=== PATIENT | female | born 1990 | race American Indian/Alaskan Native ===

== ENCOUNTER 2018-07-05 11:19 | Emergency (ER) | payer MEDICAID ==
[2018-07-05 12:03] VITALS: BP 131/82
--- NOTE | 2018-07-05 12:03 | Emergency Department Report ---
Blank Doc - Documentation Documentation: this 28 y o female presents to Ed cc of pelvic paic x 2-3 days denies f/v/d/dysuria UA upt, ACC evaluate
[2018-07-05 13:49] LABS: WBC,Urine < 1.0 /HPF (0.0-6.0)
[2018-07-05 13:53] LABS: Bilirubin,Urine NEG (Negative); Blood,Urine SM (Negative); Color,Urine Straw (Yellow); Protein,Urine <15 mg/dL mg/dL (Negative); Urobilinogen,Urine < 2.0 mg/dL (<2.0)
[2018-07-05 13:54] LABS: HCG Qualitative,Urine Positive (Negative)
[2018-07-05] MEDS ORDERED: TYLENOL PO ONE (15:25)
--- NOTE | 2018-07-05 17:13 | Ultrasound Report ---
PROCEDURE: US OB TRANSVAGINAL TECHNIQUE: Ultrasound obstetrical transvaginal HISTORY: preg with abd pain/ COMPARISONS: FINDINGS: Gestational sac present within the uterus There is pole identified with crown-rump length of 0.9 cm corresponding to estimated gestationa l age of 7 weeks 0 days. cardiac activity present with heart rate of 1 41 bpm. Estimated date o f delivery February 21, 2019 Yolk sac identified Right ovary 5.5 x 2.5 x 4.2 cm Left ovary is 3.4 x 2.5 x 4.1 cm No free fluid identified within the cul-de-sac IMPRESSION: Single live intrauterine gestation estimated at 7 weeks 0 days. This document is electronically signed by Walter Dominguez MD., July 05 2018 05:11:03 PM ET
--- NOTE | 2018-07-05 18:01 | Emergency Department Report ---
ED Female HPI - General Chief complaint: Abdominal Pain Stated complaint: ABD PAIN/HEADACHES Time Seen by Provider: 07/05/18 12:00 Source: patient Mode of arrival: Ambulatory Limitations: No Limitations - History of Present Illness Initial comments: Patient is a 28-year-old [place] female who is presenting with lower abdominal pain for the last several days. Patient states she has some mild nausea but no vomiting. Patient states she has a headache as well last several days. Patient has a history of irregular periods and is not sure she is or not. She denies any fevers chills cough, congestion this time. - Related Data Previous Rx's Medication Instructions Recorded Last Taken Type Pnv95/Ferrous Fumarate/FA 1 each PO QDAY #90 tablet 08/22/14 03/10/15 14:00 Rx [ Formula Tablet] Pnv,Calcium 72/Iron/Folic Acid 1 each PO DAILY #30 tablet 07/05/18 Unknown Rx [Pnv Plus Multivit Tab] Allergies Allergy/AdvReac Type Severity Reaction Status Date / Time No Known Allergies Allergy Verified 07/05/18 11:21 ED Review of Systems ROS: Stated complaint: ABD PAIN/HEADACHES Other details as noted in HPI Comment: All other systems reviewed and negative ED Past Medical Hx - Past Medical History Previous Medical History?: No Hx Hypertension: No Hx Congestive Heart Failure: No Hx Diabetes: No Hx Deep Vein Thrombosis: No Hx Renal Disease: No Hx Sickle Cell Disease: No Hx Seizures: No Hx Asthma: No Hx COPD: No Hx HIV: No - Surgical History Past Surgical History?: No - Social History Smoking Status: Never Smoker - Medications Home Medications: Home Medications Medication Instructions Recorded Confirmed Last Taken Type Pnv95/Ferrous Fumarate/FA 1 each PO QDAY #90 tablet 08/22/14 03/21/15 03/10/15 14:00 Rx [ Formula Tablet] Pnv,Calcium 72/Iron/Folic Acid 1 each PO DAILY #30 tablet 07/05/18 Unknown Rx [Pnv Plus Multivit Tab] ED Physical Exam - General Limitations: No Limitations General appearance: alert, in no apparent distress - Head Head exam: Present: atraumatic, normocephalic - Eye Eye exam: Present: normal appearance - ENT ENT exam: Present: mucous membranes moist - Neck Neck exam: Present: normal inspection - Respiratory Respiratory exam: Present: normal lung sounds bilaterally. Absent: respiratory distress, wheezes, rales, rhonchi - Cardiovascular Cardiovascular Exam: Present: regular rate, normal rhythm. Absent: systolic murmur, diastolic murmur, rubs, gallop - GI/Abdominal GI/Abdominal exam: Present: soft, normal bowel sounds. Absent: distended, tenderness, guarding, rebound - Extremities Exam Extremities exam: Present: normal inspection - Back Exam Back exam: Present: normal inspection - Neurological Exam Neurological exam: Present: alert, oriented X3 - Psychiatric Psychiatric exam: Present: normal affect, normal mood - Skin Skin exam: Present: warm, dry, intact, normal color. Absent: rash ED Course Vital Signs 07/05/18 07/05/18 12:00 15:43 Temperature 98.2 F Pulse Rate 83 Respiratory 15 16 Rate Blood Pressure 131/82 O2 Sat by Pulse 100 Oximetry ED Medical Decision Making - Lab Data Lab Results 07/05/18 07/05/18 Range/Units 12:44 15:31 HCG, Quant 10327 H (0-4) mIU/mL Urine Color Straw (Yellow) Urine Turbidity Clear (Clear) Urine pH 8.0 H (5.0-7.0) Ur Specific Pilot 1.006 (1.003-1.030) Urine Protein <15 mg/dl (Negative) mg/dL Urine Glucose (UA) Neg (Negative) mg/dL Urine Ketones Neg (Negative) mg/dL Urine Blood Sm (Negative) Urine Nitrite Neg (Negative) Ur Reducing Substances Not Reportable Urine Bilirubin Neg (Negative) Urine Ictotest Not Reportable Urine Urobilinogen < 2.0 (<2.0) mg/dL Ur Leukocyte Esterase Neg (Negative) Urine WBC (Auto) < 1.0 (0.0-6.0) /HPF Urine RBC (Auto) 5.0 (0.0-6.0) /HPF U Epithel Cells (Auto) 1.0 (0-13.0) /HPF Urine HCG, Qual Positive A (Negative) - Radiology Data [facility] [address] [place] [address] Ultrasound Report Signed Patient: TOMASZ HOLDEN MR#: [id number] : 1990 Acct:[id number] Age/Sex: 28 / F ADM Date: 07/05/18 Loc: ED Attending Dr: Ordering Physician: SERGE FARFAN MD Date of Service: 07/05/18 Procedure(s): US OB transvaginal Accession Number(s): [id number] cc: SERGE FARFAN MD PROCEDURE: US OB TRANSVAGINAL TECHNIQUE: Ultrasound obstetrical transvaginal HISTORY: preg with abd pain/ COMPARISONS: FINDINGS: Gestational sac present within the uterus There is pole identified with crown-rump length of 0.9 cm corresponding to estimated gestational age of 7 weeks 0 days. cardiac activity present with heart rate of 1 41 bpm. Estimated date of delivery February 21, 2019 Yolk sac identified Right ovary 5.5 x 2.5 x 4.2 cm Left ovary is 3.4 x 2.5 x 4.1 cm No free fluid identified within the cul-de-sac IMPRESSION: Single live intrauterine gestation estimated at 7 weeks 0 days. This document is electronically signed by Walter Crespo MD., July 05 2018 05:11:03 PM ET Transcribed By: [facility] Dictated By: YANCY CRESPO MD Electronically Authenticated By: YANCY CRESPO MD Signed Date/Time: 07/05/18 171 DD/ 50 TD/TT: 07/05/181650 - Medical Decision Making Patient will be discharged home at this time. She has a IUP is been diagnosed in the emergency department. Patient's pain is most likely secondary to some abdominal cramping. Critical care attestation.: If time is entered above; I have spent that time in minutes in the direct care of this critically ill patient, excluding procedure time. ED Disposition Clinical Impression: Abdominal pain affecting Disposition: -01 TO HOME OR SELFCARE Is pt being admited?: No Does the pt Need Aspirin: No Condition: Stable Instructions: (ED), Abdominal Pain (ED) Prescriptions: Pnv,Calcium 72/Iron/Folic Acid [Pnv Plus Multivit Tab] 1 each PO DAILY #30 tablet Referrals: SHUN BRIGGS MD [Primary Care Provider] - 3-5 Days Time of Disposition: 17:57
--- NOTE | 2018-07-11 08:59 | Ultrasound Report ---
PROCEDURE: US OB <= 14 WEEKS FETUS TECHNIQUE: Transvaginal and transabdominal first trimester ultrasound. The transvaginal portion is d ictated separately on 07/05/2018 HISTORY: preg with abd pain COMPARISONS: None FINDINGS: Single living intrauterine with recorded cardiac activity of 141 bpm. Estimated gestational age is 7 weeks 0 days and estimated delivery date is 02/21/2019 based on crown-rump length of 9 mm. No perigestational hemorrhage identified. No significant free fluid in the pelvis. The ovaries are be tter visualized on transvaginal ultrasound of the same date. IMPRESSION: Single living intrauterine with estimated gestational age of 7 weeks 0 days and delivery da te of 02/21/2019. This document is electronically signed by Mahendra Patel MD., July 11 2018 08:56:29 AM ET
== END 2018-07-05 18:00 | disposition home or self-care (01) ==
LOC: ED 11:19
DX: O26.891 Other specified pregnancy related conditions, first trimester (principal); R10.9 Unspecified abdominal pain; R51 Headache; R11.0 Nausea; Z3A.01 Less than 8 weeks gestation of pregnancy
CPT/HCPCS: 36415; 76801; 76817; 81001; 81025; 84702; 99284

== ENCOUNTER 2019-02-06 21:42 | Inpatient (IN) | payer MEDICAID ==
[2019-02-06] MEDS ORDERED: ePHEDrine SULFATE 50 MG/1 ML INJ IV PRN (23:42)
[2019-02-06] MEDS ORDERED: fentaNYL 100 MCG/2 ML INJ IV PRN (23:42)
[2019-02-06] MEDS ORDERED: TERBUTALINE 1 MG/1 ML INJ IVP PRN (23:42)
[2019-02-06] MEDS ORDERED: BUTORPHANOL 2 MG/1 ML INJ IV PRN (23:42)
[2019-02-06] MEDS ORDERED: AMPICILLIN/NS 2 GM/100 ML 2 GM/100 ML BAG IV ONE (23:42)
[2019-02-06] MEDS ORDERED: TERBUTALINE 1 MG/1 ML INJ SUB-Q PRN (23:42)
[2019-02-06] MEDS ORDERED: MINERAL OIL 30 ML ORAL LIQD PO PRN (23:42)
[2019-02-06] MEDS ORDERED: LIDOCAINE (2%) 20 MG/1 ML VIAL 20 ML MDV INFILTRATI ONE (23:42)
[2019-02-06] MEDS ORDERED: LACTATED RINGERS 1,000 ML IV SCH (23:45)
[2019-02-06] MEDS ORDERED: OXYTOCIN 20 UNIT/1000ML DRIP 20 UNITS/1,000 ML BAG IV SCH (23:45)
[2019-02-07 00:24] LABS: Hemoglobin 9.4 gm/dl (10.1-14.3); Mean Corpuscular HGB Conc 31 % (30-34); Mean Corpuscular Volume 79 fl (79-97); Platelet Count 242 K/mm3 (140-440); Red Blood Count 3.79 M/mm3 (3.65-5.03); Red Cell Distribution Width 15.3 % (13.2-15.2)
[2019-02-07 00:31] LABS: Amphetamine Screen,Urine PRESUMPTIVE NEGATIVE; Benzodiazepines Screen,Urine PRESUMPTIVE NEGATIVE; Cannabinoid Screen,Urine PRESUMPTIVE NEGATIVE; Cocaine Screen,Urine PRESUMPTIVE NEGATIVE; Methadone Screen,Urine PRESUMPTIVE NEGATIVE; Opiate Screen,Urine PRESUMPTIVE NEGATIVE
--- NOTE | 2019-02-07 00:49 | History and Physical Report ---
History of Present Illness Date of examination: 02/07/19 Date of admission: 02/07/19 00:09 Chief complaint: Active Labor PNC with Dr Villatoro History of present illness: 29yo at 38+5/7 weeks by second trimester US(uncertain LNMP) presents in active labor. care with Dr Villatoro. Cervical exam in OB triage: 6cm/100%/-2. GBS positive. FHT Category 1. 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/18) - Obstetrical History : 4 Medications and Allergies Allergies Allergy/AdvReac Type Severity Reaction Status Date / Time No Known Allergies Allergy Verified 07/05/18 11:21 Home Medications Medication Instructions Recorded Confirmed Last Taken Type No Known Home Medications [No 02/06/19 02/06/19 Unknown History Reported Home Medications] Active Meds: Active Medications Butorphanol Tartrate (Stadol) 2 mg IV Q2H PRN PRN Reason: Pain , Severe (7-10) Ephedrine Sulfate (Ephedrine Sulfate) 10 mg IV Q2M PRN PRN Reason: Hypotension Fentanyl (Sublimaze) 100 mcg IV Q2H PRN PRN Reason: Labor Pain Oxytocin/Sodium Chloride (Pitocin/Ns 20 Unit/1000ml Drip) 20 units in 1,000 mls @ 125 mls/hr IV DIRECT ELSA Lactated Ringer's (Lactated Ringers) 1,000 mls @ 125 mls/hr IV DIRECT ELSA Last Admin: 02/07/19 00:09 Dose: 125 mls/hr Documented by: Ampicillin Sodium (Ampicillin/Ns 1 Gm/50 Ml) 1 gm in 50 mls @ 100 mls/hr IV Q4HR ELSA; Protocol Mineral Oil (Mineral Oil) 30 ml PO QHS PRN PRN Reason: Constipation Terbutaline Sulfate (Brethine) 0.25 mg SUB-Q ONCE PRN PRN Reason: Hyperstimulation/Hypertonicity Terbutaline Sulfate (Brethine) 0.25 mg IVP ONCE PRN PRN Reason: Hyperstimulation/Hypertonicity Review of Systems All systems: negative (+ve contractions, no LOF, no VB, GFM) - Vital Signs Vital signs: Vital Signs Temp Pulse Resp BP 98.5 F 98 H 18 127/71 02/06/19 22:56 02/06/19 22:56 02/06/19 22:56 02/06/19 22:56 Temp Pulse Resp BP Pulse Ox 97.8 F 90 18 124/75 02/07/19 00:33 02/07/19 00:22 02/06/19 22:56 02/07/19 00:22 - Physical Exam Breasts: Positive: deferred Cardiovascular: Regular rate Lungs: Positive: Clear to auscultation Abdomen: Positive: normal appearance Genitourinary (Female): Positive: normal external genitalia Vulva: both: normal Vagina: Positive: normal moisture Cervix: Positive: other (6cm/100%/-2) Uterus: Positive: other (FH 38cm) Anus/Rectum: Positive: normal perianal skin Extremities: Positive: normal Deep Tendon Reflex Grade: Normal +2 - Obstetrical FHR: category 1 Cervical Dilatation: 6 Cervical Effacement Percentage: 100 station: -2 Uterine Contraction Pattern: Regular (3-4 minutes) Results Result Diagrams: 02/06/19 23:24 Abnormal lab results 02/06/19 Range/Units 23:24 Hgb 9.4 L (10.1-14.3) gm/dl Hct 30.0 L (30.3-42.9) % MCH 25 L (28-32) pg RDW 15.3 H (13.2-15.2) % All other labs normal. Assessment and Plan Active Labor GBS positive AFP increased risk for Down's Migraines Trich treated 08/02/18 Abnormal GCT-3 hour GTT WNL P: admission GBS prophylaxis CFM Pain meds PRN AROM after 1st dose of Abx Maternal/ status reassuring overall
[2019-02-07] MEDS ORDERED: LIDOCAINE (2%) 20 MG/1 ML VIAL 20 ML MDV INFILTRATI ONE (01:02)
[2019-02-07] MEDS ORDERED: TERBUTALINE 1 MG/1 ML INJ IVP PRN (01:02)
[2019-02-07] MEDS ORDERED: ePHEDrine SULFATE 50 MG/1 ML INJ IV PRN (01:02)
--- NOTE | 2019-02-07 01:37 | Progress Note ---
Subjective - Subjective Date of service: 02/07/19 Interval history: AROM clear fluid 7cm/100%/=1 FHT Category 1 [place]:Q2 [place] Continue current management expect carlotta Cid MD Objective - Vital Signs Vital Signs: Vital Signs - 12hr 02/06/19 02/06/19 02/07/19 22:56 23:26 00:22 Temperature 98.5 F Pulse Rate 98 H 96 H 90 Respiratory 18 Rate Blood Pressure 127/71 124/75 124/75 Blood Pressure 127/71 [Left] 02/07/19 00:33 Temperature 97.8 F Pulse Rate Respiratory Rate Blood Pressure Blood Pressure [Left] - Labs Labs: Abnormal Labs 02/06/19 23:24 Hgb 9.4 L Hct 30.0 L MCH 25 L RDW 15.3 H Laboratory Results - last 24 hr 02/06/19 02/06/19 23:10 23:24 WBC 8.8 RBC 3.79 Hgb 9.4 L Hct 30.0 L MCV 79 MCH 25 L MCHC 31 RDW 15.3 H Plt Count 242 Urine Opiates Screen Presumptive negative Urine Methadone Screen Presumptive negative Ur Barbiturates Screen Presumptive negative Ur Phencyclidine Scrn Presumptive negative Ur Amphetamines Screen Presumptive negative U Benzodiazepines Scrn Presumptive negative Urine Cocaine Screen Presumptive negative U Marijuana (THC) Screen Presumptive negative Drugs of Abuse Note Disclamer
[2019-02-07] MEDS ORDERED: OXYTOCIN DRIP 30 UNITS/500 ML BAG IV SCH ×2 (02:00)
[2019-02-07] MEDS ORDERED: LACTATED RINGERS 1,000 ML IV SCH (02:00)
[2019-02-07] MEDS ORDERED: OXYTOCIN 20 UNIT/1000ML DRIP 20 UNITS/1,000 ML BAG IV SCH (02:00)
[2019-02-07] MEDS ORDERED: AMPICILLIN/NS 1 GM/50 ML 1 GM/50 ML BAG IV SCH (03:42)
--- NOTE | 2019-02-07 03:53 | Procedure Note ---
OB Delivery Note - Delivery Date of Delivery: 02/07/19 Surgeon: ASHLEY MELLO Estimated blood loss: 200cc - Vaginal Delivery position: OA Intrapartum events: none Delivery induction: none Delivery augmentation: rupture of membranes Delivery monitor: external FHT Route of delivery: Episiotomy: none Delivery laceration: none, other (superficial laceration(periurethral), hemostatis, does not require repair) Anesthesia: none, intravenous Delivery comments: I was called for delivery at 9cm/100%/+1. Patient was noted to be complete ~5 minutes upon entering the room. She pushed to delivery spontaneously a viable female with weight and 8,9. Loose nuchal cord reduced at delivery of head. vertex delivered MARIAA. The anterior shoulder delivered atraumatically, the remainder of the delivery uneventful. Spontaneous cry at delivery,baby placed on the maternal abdomen with delayed cord clamping. Cord was then clamped and cut after ~1 minute and [facility]. An intact placenta with three vessel cord delivered spontaneously. Inspection of the perineum revealed a superficial periurethral laceration that did not require repair. The remainder of the perineum, vagina and cervix were noted to be intact. All sponge, instrument and needle counts correct. EBL 200ml. Mom and baby stable to . Vipin Mello MD
[2019-02-07] MEDS ORDERED: PROMETHAZINE 25 MG TAB PO PRN (04:01)
[2019-02-07] MEDS ORDERED: ACETAMINOPHEN 325 MG TAB PO PRN (04:01)
[2019-02-07] MEDS ORDERED: WITCH HAZEL/ GLYCERIN PAD TP PRN (04:01)
[2019-02-07] MEDS ORDERED: ONDANSETRON 4 MG/2 ML INJ IV PRN (04:01)
[2019-02-07] MEDS ORDERED: MAGNESIUM HYDROXIDE (MOM) ORAL LIQD UDC PO PRN (04:01)
[2019-02-07] MEDS ORDERED: PROMETHAZINE 25 MG RECT SUPP PR PRN (04:01)
[2019-02-07] MEDS ORDERED: HYDROcodone/ACETAMINOPHEN 5-325 MG TAB PO PRN (04:01)
[2019-02-07] MEDS ORDERED: diphenhydrAMINE 25 MG CAP PO PRN (04:01)
[2019-02-07] MEDS ORDERED: LANOLIN/ZINC/DIMETHICONE (LANSINOH) 7 GM TP PRN (04:01)
[2019-02-07 06:30] LABS: Hematocrit 28.8 % (30.3-42.9); Hemoglobin 9.1 gm/dl (10.1-14.3); Mean Corpuscular HGB Conc 32 % (30-34); Mean Corpuscular Volume 79 fl (79-97); Platelet Count 214 K/mm3 (140-440); Red Blood Count 3.63 M/mm3 (3.65-5.03); Red Cell Distribution Width 15.6 % (13.2-15.2)
[2019-02-07] MEDS: IBUPROFEN 600 MG TAB PO SCH (12:43)
[2019-02-07 15:34] LABS: Hemoglobin 8.5 gm/dl (10.1-14.3)
[2019-02-08] MEDS: IBUPROFEN 600 MG TAB PO SCH ×4 (00:05→18:19)
[2019-02-08] MEDS: SENNOSIDES/DOCUSATE SODIUM 8.6/50 MG TAB PO SCH ×4 (00:05→18:20)
--- NOTE | 2019-02-08 10:09 | Progress Note ---
Assessment and Plan A: PP Day #1 Asymptomatic Anemia P: Follow Routine Orders FeSO4 325mg PO BID Infed 100mg IM x 1 dose D/C home in the AM RTO in One Month Plans Sterilization Subjective - Subjective Date of service: 02/08/19 Patient reports: appetite normal, voiding normally, pain well controlled, flatus, ambulating normally [place]: doing well, bottle feeding (and ) Objective - Vital Signs Latest vital signs: Vital Signs Temp Pulse Resp BP Pulse Ox 02/07/19 23:54 98.0 F 97 H 20 96/54 100 02/07/19 21:40 98.2 F 77 20 110/71 100 02/07/19 16:21 98.0 F 95 H 16 114/61 98 02/07/19 11:56 97.9 F 81 20 117/78 98 Intake and Output 02/07/19 02/08/19 02/08/19 22:59 06:59 14:59 Intake Total 600 120 Output Total 150 Balance 450 120 Intake: Oral 600 120 Output: Urine 150 Void 150 Other: Total, Intake Amount 240 120 Total, Output Amount 150 # Voids Void 1 1 - Exam Breasts: Present: normal Cardiovascular: Present: Regular rate Lungs: Present: Clear to auscultation, Normal air movement Abdomen: Present: normal appearance, soft, normal bowel sounds Uterus: Present: normal, firm, fundal height below umbilicus Extremities: Present: normal - Labs Labs: Abnormal lab results 02/07/19 Range/Units 15:14 Hgb 8.5 L (10.1-14.3) gm/dl Hct 26.0 L (30.3-42.9) %
--- NOTE | 2019-02-08 10:10 | Discharge Summary ---
Providers - Providers Date of Admission: 02/07/19 00:09 Date of discharge: 02/09/19 Attending physician: ASHLEY MELLO MD Primary care physician: ASHLEY MELLO MD Hospitalization Reason for admission: active labor Delivery: Episiotomy: none Laceration: none Other procedures: none complications: none Discharge diagnosis: IUP at term delivered baby: female Condition at discharge: Good Disposition: DC-01 TO HOME OR SELFCARE Plan - Provider Discharge Summary Activity: routine, no sex for 6 weeks, no heavy lifting 4 weeks, no strenuous exercise Diet: routine Instructions: routine Additional instructions: [] Smoking cessation referral if applicable(refer to patient education folder for contact #) [] Refer to [facility] Booklet Call your doctor immediately for: * Fever > 100.5 * Heavy vaginal bleeding ( >1 pad per hour) * Severe persistent headache * Shortness of breath * Reddened, hot, painful area to leg or breast * Drainage or odor from incision. * Keep incision clean and dry at all times and follow doctor's instructions regarding bathing/showering - Follow up plan Follow up: ASHLEY MELLO MD [Primary Care Provider] - 03/10/19
[2019-02-08] MEDS ORDERED: IRON DEXTRAN COMPLEX 100 MG/2 ML INJ IM NR (11:00)
[2019-02-08] MEDS: FERROUS SULFATE 325 MG TAB PO SCH (11:59)
[2019-02-09] MEDS: FERROUS SULFATE 325 MG TAB PO SCH (00:31)
[2019-02-09] MEDS: IBUPROFEN 600 MG TAB PO SCH ×2 (00:31→06:46)
[2019-02-09 12:18] VITALS: BP 127/88
== END 2019-02-09 12:35 | disposition home or self-care (01) | DRG 775 ==
LOC: TRG 21:42 → LD 02-07 00:09 → OB 02-07 05:25
PROVIDERS: ADMIT Obstetrics & Gynecology; ATTEND Obstetrics & Gynecology
PROC: 10E0XZZ Delivery of Products of Conception, External Approach (ICD-10-PCS; principal; 2019-02-07)
PROC: 10907ZC Drainage of Amniotic Fluid, Therapeutic from Products of Conception, Via Natural or Artificial Opening (ICD-10-PCS; 2019-02-07)
DX: O99.824 Streptococcus B carrier state complicating childbirth (principal); O99.354 Diseases of the nervous system complicating childbirth; G43.909 Migraine, unspecified, not intractable, without status migrainosus; O99.02 Anemia complicating childbirth; O71.82 Other specified trauma to perineum and vulva; Z3A.38 38 weeks gestation of pregnancy; Z37.0 Single live birth
CPT/HCPCS: 36415; 80307; 85014; 85018; 85027; 86850; 86900; 86901; G0378; A6250; J0290; J0595; J1750; J2590; J7120